=== PATIENT | male | born 1950 | race Caucasian/White ===

== ENCOUNTER → 2017-04-11 | Outpatient (CLI) | payer MEDICARE ==
[~2017-04-11] MED LIST: AMLO10TA2 PO; ASCO500T8 PO; ASPI-496 PO; ATOR10TA PO; CLIN40CR2 TP; DICL75TA2 PO; DOCU250C17 PO; FISH1CAP PO; GABA300C10 PO; HYDR25TA6 PO; LACT1CAP35 PO; MULT-658 PO; OLME40TA12 PO; OMEP20TA62 PO; SILD25TA PO; TRIA15CR3 TP; UBID100C24 PO; VIT1TABL32 PO
[2017-04-11 12:23] LABS: BASOPHILS # (AUTO) 0.04 x10^3/uL (0-0.1); BASOPHILS % (AUTO) 0 % (0-1); EOSINOPHILS # (AUTO) 0.12 x10^3/uL (0-0.4); EOSINOPHILS % (AUTO) 1 % (1-7); LYMPHOCYTES # (AUTO) 1.83 x10^3/uL (1-3.4); LYMPHOCYTES % (AUTO) 18 % (22-44); MD NO; MEAN CORPUSCULAR HEMOGLOBIN 32.3 pg (27.5-34.5); MEAN CORPUSCULAR HGB CONC 33.3 g/dL (33.2-36.2); MEAN PLATELET VOLUME 8.6 fL (7.4-10.4); MONOCYTES # (AUTO) 0.52 x10^3/uL (0.2-0.8); MONOCYTES % (AUTO) 5 % (2-9); NEUTROPHILS # (AUTO) 7.63 x10^3/uL (1.8-6.8); NEUTROPHILS % (AUTO) 75 % (42-75); PLATELET COUNT 311 x10^3/uL (130-400); RED CELL DISTRIBUTION WIDTH 14.6 % (9.4-14.8)
[2017-04-11 12:25] LABS: MICROSCOPIC AUTO
[2017-04-11 12:36] LABS: ALANINE AMINOTRANSFERASE 41 U/L (12-78); ALBUMIN 4.3 g/dL (3.4-5.0); ANION GAP 8 mmol/L (5-15); CALCIUM 9.4 mg/dL (8.5-10.1); CHLORIDE 105 mmol/L (98-107); CREATININE 1.47 mg/dL (0.7-1.3)
[2017-04-11 12:38] LABS: ALKALINE PHOSPHATASE 129 U/L (45-117); BILIRUBIN,TOTAL 0.6 mg/dL (0.2-1.0); TOTAL PROTEIN 8.1 g/dL (6.4-8.2)
== END | disposition home or self-care (01) ==
LOC: STAR 11:16
PROVIDERS: ATTEND Urology
DX: Z01.818 Encounter for other preprocedural examination (principal); I45.10 Unspecified right bundle-branch block; C67.9 Malignant neoplasm of bladder, unspecified; Z79.899 Other long term (current) drug therapy
CPT/HCPCS: 36415; 80053; 81001; 85025; 87077; 87086; 87186; 93005

== ENCOUNTER 2017-04-23 09:14 | Day surgery (SDC) | payer MEDICARE ==
[2017-04-11 12:00] VITALS: BP 145/82
[~2017-04-23] VITALS: Ht 177.8 cm; Wt 108.1 kg
[2017-04-23] MEDS ORDERED: LACTATED RINGERS 1,000 ML IV SCH (10:09)
[2017-04-23] MEDS ORDERED: PROPOFOL 10 MG/ML, 20ML ONE (11:14)
[2017-04-23] MEDS ORDERED: LIDOCAINE-MPF 2% ,5ML ONE (11:14)
[2017-04-23] MEDS ORDERED: ONDANSETRON 2MG/ML, 2ML ONE (11:15)
[2017-04-23] MEDS ORDERED: DEXAMETHASONE 4 MG/ML, 1ML ONE ×2 (11:15)
[2017-04-23] MEDS ORDERED: LIDOCAINE GEL 2%, 5ML ONE (11:15)
[2017-04-23] MEDS ORDERED: CEFAZOLIN 1,000 MG ONE ×2 (11:48)
[2017-04-23] MEDS ORDERED: FENTANYL PF 100 MCG/2ML ONE (11:53)
[2017-04-23] MEDS ORDERED: HYDROmorphone 1 MG/ML, 1ML IV PRN (12:30)
[2017-04-23] MEDS ORDERED: morphine SULFATE 10 MG/ML, 1ML IV PRN (12:30)
[2017-04-23] MEDS ORDERED: ACETAMINOPHEN 325 MG TABLET PO PRN (12:30)
[2017-04-23] MEDS ORDERED: OXYcodone 5 MG/5 ML ORAL.SOL UDC PO PRN (12:30)
[2017-04-23] MEDS ORDERED: MEPERIDINE/PF 25MG/0.5ML IVPush PRN (12:30)
[2017-04-23] MEDS ORDERED: FENTANYL PF 100 MCG/2ML IV PRN (12:30)
[2017-04-23] MEDS ORDERED: ONDANSETRON 2MG/ML, 2ML IVPush PRN (12:30)
[2017-04-23] MEDS ORDERED: HYDROcodone/APAP 7.5-325MG/15ML UDC PO PRN (12:30)
== END 2017-04-23 14:35 ==
LOC: OUT 09:14
PROVIDERS: ATTEND Urology
DX: N30.20 Other chronic cystitis without hematuria (principal); K21.9 Gastro-esophageal reflux disease without esophagitis; Z85.51 Personal history of malignant neoplasm of bladder; Z87.891 Personal history of nicotine dependence; Z79.82 Long term (current) use of aspirin; Z87.39 Personal history of other diseases of the musculoskeletal system and connective tissue; Z98.890 Other specified postprocedural states
CPT/HCPCS: 52234; 88305; 88307; J0690; J1100; J2405; J2704; J3010; J3490; J7120

== ENCOUNTER → 2020-04-20 | Outpatient (CLI) | payer MEDICARE ==
[~2020-04-20] MED LIST changes: +AMLO-211 PO; -AMLO10TA2 PO; -DICL75TA2 PO; +DICL75TA3 PO; -TRIA15CR3 TP; +TRIA15CR61 TP; +VISIPAQUE 320 MG/ML, 150ML BOTTLE ONE
== END | disposition home or self-care (01) ==
LOC: CVU 09:12
PROVIDERS: ATTEND Internal Medicine Cardiovascular Disease
DX: Z01.810 Encounter for preprocedural cardiovascular examination (principal); I35.8 Other nonrheumatic aortic valve disorders; N32.89 Other specified disorders of bladder; I65.23 Occlusion and stenosis of bilateral carotid arteries
CPT/HCPCS: 71275; 74174; 87635; 93880; Q9967